=== PATIENT | male | born 1950 | race Caucasian/White ===

== ENCOUNTER 2017-02-13 09:13 | Inpatient (IN) | payer OTHER ==
--- NOTE | 2017-02-13 09:26 | EDPHY ---
H & P Stated Complaint: gerd paritally relieved with nitro, starting at 8am, cardiac hx HPI/ROS: CHIEF COMPLAINT: "Heart burn" HISTORY OF PRESENT ILLNESS: The patient is a 67 y/o male arriving with his complaining of heartburn sensation onset this morning. 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 This morning he felt what he presumed was a "mild case of heartburn" and took two nitro around 8:30, about 1 hour ago. This seemed to improve his symptoms a bit. He started to load up his truck and noticed that he felt diaphoretic and lightheaded. He had these symptoms with his previous TN so he decided to come into the ED. He continues to have a burning sensation in his chest, but reports it has improved to a 2/10 from 4/10. He rarely needs to use his nitro and says he is compliant with his medications. He has not yet taken aspirin today, but did use Protonix this morning. He denies abdominal pain, vomiting, or shortness of breath. REVIEW OF SYSTEMS: A ten point review of systems was performed and is negative with the exception of the items mentioned in the HPI. Source: Patient, Family Exam Limitations: No limitations - Personal History Current Tetanus/Diphtheria Vaccine: Yes Current Tetanus Diphtheria and Acellular Pertussis (TDAP): Yes - Medical/Surgical History PMH: PMH: 1. TN requiring CABG in [address] - [facility] in [place], [place] 2. "multiple clots" following CABG with 1 year of anticoagulants, denies DVT or PE 3. Hyperlipidemia 4. GERD? 5. Sciatic nerve surgery, back surgery, prostatectomy 6. Skin cancer Hx Asthma: Yes Hx Chronic Respiratory Disease: No Hx Diabetes: No Hx Cardiac Disease: Yes Hx Renal Disease: No Hx Cirrhosis: No Hx Alcoholism: No Hx HIV/AIDS: No Hx Splenectomy or Spleen Trauma: No Other PMH: pmh: TN, spine surgery, TURP, shouldersurgery, herinia surgery, dental, skin ca with removal of facial lesions - Social History Smoking Status: Never smoked Additional Social History: Lives in [place]. Visiting son here. at bedside. 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 - Physical Exam Exam: General Appearance: Alert. Vital signs reviewed. HR 55. BP 129/86. Eyes: Pupils equal and round, no conjunctival injection, no discharge. Anicteric. ENT, Mouth: Mucous membranes are moist, no oropharyngeal erythema or edema. Neck: No lymphadenopathy, supple. No JVD. Respiratory: Lungs are clear to auscultation; no wheezes, rales, or rhonchi. Cardiovascular: Bradycardic regular rate and rhythm; no murmur, rub, or gallop. Gastrointestinal: Abdomen is soft and nontender, no masses or organomegaly, bowel sounds normal. Skin: Warm and dry, no rashes on exposed skin, normal color. Back: Nontender to palpation over the thoracolumbar spine. No CVAT. Extremities: No lower extremity edema, no calf tenderness or swelling. Neurological: Alert and oriented. Moving all four extremities easily and equally. Psychiatric: Normal affect. Constitutional: Initial Vital Signs Temperature (C) 36.4 C 02/13/17 09:16 Heart Rate 55 L 02/13/17 09:16 Respiratory Rate 16 02/13/17 09:16 Blood Pressure 129/86 H 02/13/17 09:16 O2 Sat (%) 93 02/13/17 09:16 O2 Delivery Mode Room Air Allergies/Adverse Reactions: No Known Allergies Allergy (Unverified 02/13/17 09:16) Home Medications: Medication Instructions Recorded Ascorbic Acid [Vitamin C 500 mg 1,000 mg PO DAILY 02/13/17 (*)] Aspirin [Aspirin 81mg (*)] 81 mg PO DAILY 02/13/17 Atorvastatin Calcium [Lipitor 40 80 mg PO HS 02/13/17 mg (*)] Carvedilol [Coreg (*)] 6.25 mg PO BIDMEAL 02/13/17 Cholecalciferol Vit D3 [Vitamin D3 2,000 units PO DAILY 02/13/17 2000 units tab (OTC)] Citalopram [CeleXA] 20 mg PO DAILY 02/13/17 Furosemide [Lasix 40 MG (*)] 40 mg PO DAILY 02/13/17 Glucosamine/Chondroitin 1 each PO DAILY 02/13/17 [Glucosamine/Chondroitin (*)] Herbals/Supplements -Info Only 1 ea PO DAILY 02/13/17 Lisinopril [Zestril 10 mg (*)] 10 mg PO DAILY 02/13/17 Multivitamins [Multivitamin (*)] 1 each PO DAILY 02/13/17 Nitroglycerin [Nitrostat 0.4 mg 0.4 mg SL Q5M PRN 02/13/17 (*)] Pantoprazole Sodium [Protonix 40mg 40 mg PO DAILY 02/13/17 (*)] Spironolactone [Aldactone 25 MG 12.5 mg PO DAILY 02/13/17 (*)] Vitamin B Complex [B Complex] 1 each PO DAILY 02/13/17 Medical Decision Making - Diagnostics EKG Interpretation: The 12 lead EKG was interpreted by myself. See hard copy and/or "tracemaster" electronic copy for interpretation. A 2nd 12 lead EKG is interpreted in Trace master View by emergency department physician. No significant change Imaging Results: Imaging Impressions Chest X-Ray 02/13/17 09:28 Impression: Mild bronchitis. No other findings for acute cardiopulmonary abnormality. Imaging: I viewed and interpreted images myself ED Course/Re-evaluation: This is a 67 y/o male with a history of CAD and bypass who presents with exertional chest pain somewhat improved with nitro at home. Exam is unremarkable. IV established. Labs drawn including troponin. 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 Chest x-ray ordered. 324mg PO Aspirin administered. Prior EKG requested from hospital in [place]. 1040: Reassessed patient. Discussed work up thus far. Troponin is negative, though this is not necessarily sensitive due to short time since symptom onset. Chest x-ray pending. Reassessed patient. He had a burning substernal chest pain on arrival and was offered nitroglycerin but declined. No current chest pain. 1218: Spoke with hospitalist service. Dr. Gomez accepts admission for chest pain. Repeat EKG is without changes. This patient has a HEART score of 7, giving him an over 50% chance of having an acute major coronary event within the next 6 weeks. I recommended admission and he has accepted admission. Differential Diagnosis: Chest pain including but not limited to myocardial ischemia, pulmonary embolus, chest wall pain, pleural inflammation and pulmonary infectious causes. - Data Points Laboratory Results: Laboratory Results 02/13/17 09:35 02/13/17 09:35 02/13/17 02/13/17 09:35 09:35 WBC 7.47 10^3/uL 10^3/uL (3.80-9.50) RBC 4.66 10^6/uL 10^6/uL (4.40-6.38) Hgb 14.7 g/dL g/dL (13.7-17.5) Hct 43.1 % % (40.0-51.0) MCV 92.5 fL fL (81.5-99.8) MCH 31.5 pg pg (27.9-34.1) MCHC 34.1 g/dL g/dL (32.4-36.7) RDW 12.5 % % (11.5-15.2) Plt Count 232 10^3/uL 10^3/uL (150-400) MPV 9.9 fL fL (8.7-11.7) Neut % (Auto) 60.3 % % (39.3-74.2) Lymph % (Auto) 26.0 % % (15.0-45.0) Dickey % (Auto) 8.8 % % (4.5-13.0) Eos % (Auto) 3.3 % % (0.6-7.6) Baso % (Auto) 1.1 % % (0.3-1.7) Nucleat RBC Rel Count 0.0 % % (0.0-0.2) Absolute Neuts (auto) 4.50 10^3/uL 10^3/uL (1.70-6.50) Absolute Lymphs (auto) 1.94 10^3/uL 10^3/uL (1.00-3.00) Absolute Monos (auto) 0.66 10^3/uL 10^3/uL (0.30-0.80) Absolute Eos (auto) 0.25 10^3/uL 10^3/uL (0.03-0.40) Absolute Basos (auto) 0.08 10^3/uL 10^3/uL (0.02-0.10) Absolute Nucleated RBC 0.00 10^3/uL 10^3/uL (0-0.01) Immature Gran % 0.5 % % (0.0-1.1) Immature Gran # 0.04 10^3/uL 10^3/uL (0.00-0.10) Sodium 140 mEq/L mEq/L (134-144) Potassium 3.9 mEq/L mEq/L (3.5-5.2) Chloride 106 mEq/L mEq/L (97-110) Carbon Dioxide 23 mEq/l mEq/l (22-31) Anion Gap 11 mEq/L mEq/L (8-16) BUN 15 mg/dL mg/dL (7-23) Creatinine 0.9 mg/dL mg/dL (0.7-1.3) Estimated GFR > 60 Glucose 151 mg/dL H mg/dL (70-100) Calcium 9.4 mg/dL mg/dL (8.5-10.4) Troponin I < 0.012 ng/mL ng/mL (0-0.034) Medications Given: Discontinued Medications Aspirin (Aspirin) 324 mg PO EDNOW ONE Stop: 02/13/17 09:29 Last Admin: 02/13/17 09:33 Dose: 324 mg Departure - Departure Disposition: [facility] Inpatient Acute Clinical Impression: Chest pain Qualifiers: Chest pain type: other chest pain Qualified Code(s): R07.89 - Other chest pain Condition: Good Report Scribed for: Catie Ralph Report Scribed by: Alessandra Freitas Date of Report: 02/13/17 Time of Report: 09:36 Physician Review and Approval Statement: 02/13/17 09:25 Portions of this note were transcribed by the front office medical assistant. I, Dr. Catie Ralph, personally performed the history, physical exam, and medical decision- making; and confirmed the accuracy of the information in the transcribed note.
--- NOTE | 2017-02-13 09:27 | CPEKG ---
Heart Rate: 54 RR Interval: 1111 P-R Interval: 188 QRSD Interval: 100 QT Interval: 448 QTC Interval: 425 P Gallup: -12 QRS Gallup: -53 T Wave Gallup: 65 EKG Severity - ABNORMAL ECG - EKG Impression: SINUS RHYTHM EKG Impression: INFERIOR INFARCT, AGE INDETERMINATE EKG Impression: BORDERLINE R WAVE PROGRESSION, ANTERIOR LEADS Electronically Signed By: Catie Ralph 13-Feb-2017 15:29:44
[2017-02-13] MEDS ORDERED: ASPIRIN 81 MG CHEWABLE TAB PO ONE (09:28)
[2017-02-13] MEDS ORDERED: NITROGLYCERIN 0.4 MG BTL SL PRN ×2 (09:44→17:55)
[2017-02-13 09:46] LABS: % IMMATURE GRANULYOCYTES 0.5 % (0.0-1.1); ABSOLUTE IMMATURE GRANULOCYTES 0.04 10^3/uL (0.00-0.10); ADD DIFF? NO; ADD MORPH? NO; ADD SCAN? NO; ATYPICAL LYMPHOCYTE FLAG 10 (0-99); FRAGMENT RBC FLAG 0 (0-99); HEMATOCRIT 43.1 % (40.0-51.0); HEMOGLOBIN 14.7 g/dL (13.7-17.5); LEFT SHIFT FLG 0 (0-99); LIPEMIA HEMOLYSIS FLAG 90 (0-99); MEAN CELL HEMOGLOBIN 31.5 pg (27.9-34.1); MEAN CELL HEMOGLOBIN CONCENTR. 34.1 g/dL (32.4-36.7); MEAN CELL VOLUME 92.5 fL (81.5-99.8); MEAN PLATELET VOLUME 9.9 fL (8.7-11.7); PLATELET CLUMPS FLAG 10 (0-99); PLATELET COUNT 232 10^3/uL (150-400); RED BLOOD CELL COUNT 4.66 10^6/uL (4.40-6.38); RED CELL DISTRIBUTION WIDTH 12.5 % (11.5-15.2)
[2017-02-13 10:10] LABS: ANION GAP 11 mEq/L (8-16); CALCIUM 9.4 mg/dL (8.5-10.4); CARBON DIOXIDE 23 mEq/l (22-31); CHLORIDE 106 mEq/L (97-110); CREATININE 0.9 mg/dL (0.7-1.3); GLOMERULAR FILTRATION RATE > 60; GLUCOSE 151 mg/dL (70-100); POTASSIUM 3.9 mEq/L (3.5-5.2); SODIUM 140 mEq/L (134-144)
[2017-02-13 10:16] LABS: TROPONIN I < 0.012 ng/mL (0-0.034)
--- NOTE | 2017-02-13 11:17 | CPEKG ---
Heart Rate: 52 RR Interval: 1154 P-R Interval: 188 QRSD Interval: 92 QT Interval: 440 QTC Interval: 410 P Dresden: -36 QRS D[place]den: -50 T Wave D[place]den: 82 EKG Severity - ABNORMAL ECG - EKG Impression: SINUS RHYTHM EKG Impression: INFERIOR INFARCT, AGE INDETERMINATE EKG Impression: BORDERLINE R WAVE PROGRESSION, ANTERIOR LEADS Electronically Signed By: Catie Ralph 13-Feb-2017 15:29:24
[2017-02-13] MEDS ORDERED: ACETAMINOPHEN 325 MG TAB ONE (16:14)
[2017-02-13] MEDS ORDERED: ONDANSETRON DISINTEGRATING 4 MG TAB PO PRN (17:39)
[2017-02-13] MEDS ORDERED: ALBUTEROL 60 PUFFS/8 GM MDI IH PRN (17:39)
[2017-02-13] MEDS ORDERED: ALBUTEROL 3 ML DEYVIAL IH PRN (17:39)
[2017-02-13] MEDS ORDERED: ZOLPIDEM TARTRATE 5 MG TAB PO PRN (17:39)
[2017-02-13] MEDS ORDERED: LORazepam 0.5 MG TAB PO PRN (17:39)
[2017-02-13] MEDS ORDERED: ONDANSETRON 4 MG/2 ML VIAL IVP PRN (17:39)
[2017-02-13] MEDS: NS 1,000 ML IV SCH (18:08)
[2017-02-13] MEDS ORDERED: HEPARIN 10,000 UNIT/10 ML MDV IVP ONE (18:14)
[2017-02-13] MEDS ORDERED: HEPARIN 10,000 UNIT/10 ML MDV IVP PRN (18:14)
[2017-02-13] MEDS ORDERED: HEPARIN/DEXTROSE 500 ML IV SCH (18:15)
--- NOTE | 2017-02-13 18:19 | GHP ---
[f rep st] HISTORY AND PHYSICAL DATE OF ADMISSION: 02/13/2017 CHIEF COMPLAINT: Burning anterior pain of the chest. HISTORY OF PRESENT ILLNESS: This is a 67-year-old male, who arrived with his complaining of a burning anterior chest sensation which began in onset this morning. He has a history of coronary artery disease, with an NSTEMI dating to 03/2013 and status post PCI to the right coronary artery. He ultimately thrombosed that stent in 07/2013. He was given nitroglycerin in 2012 but says he has only used it once before, but this morning he began having this anterior burning pain rated 4/10. It did not radiate to his neck but it did radiate slightly toward his left arm but not down his arm. The pain was very similar to the type of pain he had when he experienced his DC in 2012 so he took 2 nitroglycerin. Approximately 1 hour after that the symptoms had abated some and he took another nitroglycerin, but because of the persistence and return of the pain, he was brought here to the ER by his . He has not taken his aspirin today but he did use his Protonix in the morning. He denies nausea, vomiting or shortness of breath. He did get diaphoretic with the first use of his nitroglycerin but did not experience dizziness. The first use of the nitroglycerin did diminish his pain. He has long-standing GERD for which he uses Protonix and it is usually in good control and does not bother him, thus , this onset of this burning pain is unusual. He denies any food intolerance or indiscretion and there has been no recent exertion or episodes of shortness of breath, orthopnea, PND, palpitations, feelings of slow or rapid heart beating in the recent past or during this episode. He also denies dizziness or near-syncopal episodes. He is usually able to walk 4 or 5 blocks without difficulty. He can climb 1 flight of steps without shortness of breath. PAST MEDICAL HISTORY: 1. NSTEMI in 03/2013 and status post PCI to the right coronary artery. The stent ultimately thrombosed in 07/2013. He was thus then placed on 1 year of warfarin anticoagulation. He denies DVT or pulmonary embolus but reports he was placed on 1 year of anticoagulation because of clotting. Review of his outside records shows that an echo at that time showed an inferior scar and aneurysm by echo in 07/2013. His EF was reported then to be 45% to 50%. 2. Hyperlipidemia. 3. GERD for many years treated with PPI medication. 4. Clinically possible COPD as he has a 40 pack-year history of tobacco, although he does not use bronchodilators though he does experience a slight morning and a.m. cough which is not productive of sputum and usually resolves on its own. This finding is not consistent with chronic bronchitis. 5. He denies a history of asthma, diabetes or renal problems. He is under antihypertensive medication. PAST SURGICAL HISTORY: He has had lumbar surgery and prostate surgery. He has had shoulder surgery, a herniorrhaphy, dental care and a skin cancer removed from his face. SOCIAL HISTORY: The gentleman is . He has a 40 pack-year history of tobacco. Alcohol is rare. Drugs: None. MEDICATIONS: Noted in the EMR and have been reconciled. These medications include antihypertensives, Lasix, beta theresa, aspirin, Protonix and spironolactone. ALLERGIES: None. FAMILY HISTORY: His father and mother both of heart disease. The onset of the age is unclear although it is possible there is early coronary disease. REVIEW OF SYSTEMS: A 10-point review of systems was entirely negative. Specifically, he has noted no palpitations, orthopnea, PND, fever, chills, sweats, back pain, nausea or vomiting. PHYSICAL EXAM: GENERAL: This is a pleasant alert gentleman who appears comfortable. I am seeing the gentleman on the medical floor. He is not experiencing any chest pain at the time of my evaluation. VITAL SIGNS: His initial vital signs show he is a normal heart rate at approximately 55 sinus rhythm on the monitor, respirations 16, nonlabored, he is afebrile and blood pressure is normal. HEENT: Within normal limits. NECK: Supple without meningismus. CHEST WALL: Nontender to palpation. Normal inspiratory excursion. LUNGS: Clear to P and A without wheezing or rales. HEART: Soft heart sounds, although he is a large gentleman and is overweight. He has singular S1, what appears to be a singular S2. No murmur or gallop is appreciated. ABDOMEN: Obese, normoactive bowel sounds. No masses, tenderness or organomegaly. EXTREMITIES: No edema, cyanosis or clubbing. LABORATORY: Initial CBC is entirely normal. Chemistry panel is also normal but an elevated glucose of 151. Initial troponin is normal. ECG here initially showed Q-waves inferiorly, consistent with a remote inferior myocardial infarction. There is no ST or T-wave changes consistent with ischemia. The ECG was repeated 90 minutes later and showed no significant changes and no changes of ischemia. Chest x-ray showed borderline cardiomegaly , mild peribronchial cuffing seen bilaterally, consistent with mild bronchitis. There is no other active cardiopulmonary disease noted. The chest x-ray was reviewed personally on the PAC system. ASSESSMENT: 1. Acute chest pain. Possible acute cardiac ischemia, although it is not evident on his initial troponin or ECGs. Serial troponins will be obtained, and if necessary, the gentleman will be cardiac risk stratified in the a.m. should his troponin series be negative. He is a gentleman who has known coronary artery disease, and by report of old records, thrombosed a right RCA stent. He was anticoagulated for 1 year, probably because of the thrombosis of the stent and because there was an aneurysm noted on his echo in 2012. A repeat cardiac echo will be obtained and cardiac consultation will also be obtained. Currently his rhythm is stable in sinus rhythm. 2. Hypertension by history and he is normotensive at this time. We will continue his antihypertensive regimen and follow this closely. 3. History of tobacco use with cessation of tobacco in 2013. He has a mild morning a.m. and p.m. cough but is not productive of sputum. His oxygen saturation is normal. Body habitus may indicate possible obstructive sleep apnea and nighttime oxygen saturations will be followed and I suggest a sleep study as an outpatient. 4. Gastroesophageal reflux disease by history. We will continue his PPI medication. 5. MOISES: Patient will use his own CPAP mask. 5. DVT prophylaxis will be with Lovenox. 6. Code status is full. BILLING: The gentleman will be admitted to observation. Should he require further evaluation and cardiac risk stratification, he should be placed at inpatient. Note that I have reviewed the gentleman's past medical history, and his records from [facility]. These records are contained on his chart on the PCU. TIME: This admission required 55 minutes. Addendum: Elevated troponin noted at 1700 hours. Patient placed on NTG and heparin, spoke with Dr Guero Fitch, ordered cardiac echo for AM. /[id number]/MODL MTDD
[2017-02-13] MEDS ORDERED: NITROGLYCERIN/DEXTROSE 250 ML IV SCH (18:30)
[2017-02-13] MEDS: ATORVASTATIN CALCIUM 40 MG TAB PO SCH (19:42)
[2017-02-13] MEDS: CARVEDILOL 6.25 MG TAB PO SCH (19:42)
[2017-02-13] MEDS: FUROSEMIDE 40 MG TAB PO SCH (19:43)
[2017-02-13] MEDS: LISINOPRIL 10 MG TAB PO SCH (19:46)
[2017-02-13 19:59] LABS: % IMMATURE GRANULYOCYTES 0.4 % (0.0-1.1); ABSOLUTE IMMATURE GRANULOCYTES 0.05 10^3/uL (0.00-0.10); ADD DIFF? NO; ADD MORPH? NO; ADD SCAN? NO; ATYPICAL LYMPHOCYTE FLAG 10 (0-99); FRAGMENT RBC FLAG 0 (0-99); HEMATOCRIT 42.4 % (40.0-51.0); HEMOGLOBIN 14.6 g/dL (13.7-17.5); LEFT SHIFT FLG 10 (0-99); LIPEMIA HEMOLYSIS FLAG 90 (0-99); MEAN CELL HEMOGLOBIN 31.6 pg (27.9-34.1); MEAN CELL HEMOGLOBIN CONCENTR. 34.4 g/dL (32.4-36.7); MEAN CELL VOLUME 91.8 fL (81.5-99.8); MEAN PLATELET VOLUME 9.8 fL (8.7-11.7); PLATELET CLUMPS FLAG 10 (0-99); PLATELET COUNT 232 10^3/uL (150-400); RED BLOOD CELL COUNT 4.62 10^6/uL (4.40-6.38); RED CELL DISTRIBUTION WIDTH 12.6 % (11.5-15.2)
[2017-02-13 20:08] LABS: APTT 25.7 SEC (23.0-38.0); INR 0.98 (0.83-1.16); PROTIME(PATIENT) 12.9 SEC (12.0-15.0)
[2017-02-13 21:13] LABS: COLOR YELLOW; LEUKOCYTE ESTERASE,URINE NEGATIVE (NEGATIVE); NITRITE,URINE NEGATIVE (NEGATIVE)
--- NOTE | 2017-02-13 21:50 | CPEKG ---
Heart Rate: 63 RR Interval: 952 P-R Interval: 184 QRSD Interval: 96 QT Interval: 416 QTC Interval: 426 P Mobile: 29 QRS Mobile: 210 T Wave Mobile: 27 EKG Severity - ABNORMAL ECG - EKG Impression: SINUS RHYTHM EKG Impression: INFERIOR INFARCT, AGE INDETERMINATE EKG Impression: LATERAL INFARCT, AGE INDETERMINATE EKG Impression: CONSIDER ANTERIOR INFARCT Electronically Signed By: Anabelle Geller 14-Feb-2017 07:11:21
[2017-02-14] MEDS: NITROGLYCERIN 2% 1 GM PACKET TP SCH ×4 (00:52→18:21)
[2017-02-14 04:05] LABS: % IMMATURE GRANULYOCYTES 0.6 % (0.0-1.1); ABSOLUTE IMMATURE GRANULOCYTES 0.06 10^3/uL (0.00-0.10); ADD DIFF? NO; ADD MORPH? NO; ADD SCAN? NO; ATYPICAL LYMPHOCYTE FLAG 10 (0-99); FRAGMENT RBC FLAG 0 (0-99); HEMATOCRIT 39.4 % (40.0-51.0); HEMOGLOBIN 13.4 g/dL (13.7-17.5); LEFT SHIFT FLG 0 (0-99); LIPEMIA HEMOLYSIS FLAG 90 (0-99); MEAN CELL HEMOGLOBIN 31.7 pg (27.9-34.1); MEAN CELL VOLUME 93.1 fL (81.5-99.8); PLATELET CLUMPS FLAG 0 (0-99); PLATELET COUNT 213 10^3/uL (150-400); RED BLOOD CELL COUNT 4.23 10^6/uL (4.40-6.38); RED CELL DISTRIBUTION WIDTH 12.8 % (11.5-15.2)
[2017-02-14 04:19] LABS: INR 1.09 (0.83-1.16)
[2017-02-14 05:00] LABS: ALANINE AMINOTRANSFERASE 53 IU/L (21-72); ALBUMIN 3.5 g/dL (3.5-5.0); ALKALINE PHOSPHATASE 64 IU/L (38-126); ANION GAP 12 mEq/L (8-16); ASPARTATE AMINOTRANSFERASE 82 IU/L (17-59); BILIRUBIN,TOTAL 0.7 mg/dL (0.1-1.4); CALCIUM 8.5 mg/dL (8.5-10.4); CARBON DIOXIDE 23 mEq/l (22-31); CHLORIDE 106 mEq/L (97-110); CREATININE 0.8 mg/dL (0.7-1.3); GLOMERULAR FILTRATION RATE > 60; GLUCOSE 164 mg/dL (70-100); MAGNESIUM 1.9 mg/dL (1.6-2.3); POTASSIUM 3.7 mEq/L (3.5-5.2); SODIUM 141 mEq/L (134-144); TOTAL PROTEIN 6.1 g/dL (6.3-8.2)
[2017-02-14] MEDS: NS 1,000 ML IV SCH (05:20)
[2017-02-14] MEDS ORDERED: NS 1,000 ML IV ONE (06:44)
[2017-02-14] MEDS ORDERED: DIAZEPAM 5 MG TAB PO ONE (06:44)
[2017-02-14] MEDS ORDERED: FAMOTIDINE 20 MG TAB PO ONE (06:44)
[2017-02-14] MEDS ORDERED: ASPIRIN EC 325 MG TAB PO ONE (06:44)
[2017-02-14] MEDS ORDERED: diphenhydrAMINE 25 MG CAP PO ONE (06:44)
[2017-02-14 07:09] LABS: CHOLESTEROL 118 mg/dL (140-220); CHOLESTEROL/HDL RATIO 3.03 RATIO (1.00-4.97); HIGH DENSITY LIPOPROTEIN 39 mg/dL (40-65); LDL/HDL RATIO 0.51 RATIO (1.00-3.64); LOW DENSITY LIPOPROTEIN 20 mg/dL (80-100); NON-HIGH DENSITY LIPOPROTEIN 79 mg/dL (90-129); TRIGLYCERIDE 297 mg/dL (40-150); VERY LOW DENSITY LIPOPROTEINS 59 mg/dL (8-25)
--- NOTE | 2017-02-14 08:32 | GCON ---
[f rep st] CONSULTATION CARDIAC CONSULTATION. DATE OF CONSULTATION: 02/14/2017 CHIEF COMPLAINT: Chest pain, abnormal troponins. HISTORY OF PRESENT ILLNESS: This is a 67-year-old gentleman who has a past cardiac history, in 2012 had a myocardial infarction of the right coronary artery. Apparently had a stent placed which fail ed. He apparently had "multiple thromboses at that time in catheterization." He was placed on Coum elvia for a year. 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 He lives in [place]. He is here visiting. On February 13, he awoke with chest pain which was similar to his prior infarction. He did take an aspirin, Protonix, and nitroglycerin. Prior to this, he had been active without any other issues. He is compliant with his medicine and does use CPAP. His pain resolved, and initial troponins were normal, subsequently have risen. The patient has been comfortable. He was placed on heparin and nitro paste last evening and did well. His EKGs show an old inferior myocardial infarc tion without acute changes. In speaking to him and his , I have outlined his findings of probab le non-Q-wave myocardial infarction. We talked about an invasive strategy versus noninvasive strate gy. They would like to progress to coronary angiography. He has no known bleeding issues such as h emophilia, protein C or S deficiency, or other inborn errors in metabolism. He was on Coumadin in t he past because of this presumably LV thrombus, but has had a prostate surgery within a year without any bleeding problems. He has been comfortable and stable overnight. He has agreed to cardiac cat heterization. He is n.p.o. This will be done today. Consents have been signed. PAST MEDICAL HISTORY: 1. Coronary artery disease as outlined above. 2. History of GERD, on PPI. 3. History of sleep apnea, on CPAP. PAST SURGICAL HISTORY: Includes lumbar surgery and prostate surgery without complications. MEDICATIONS: See reconciliation form. ALLERGIES: No known allergies. FAMILY HISTORY: Noncontributory. REVIEW OF SYSTEMS: No escalating chest pain, palpitations, syncope. No GI, blood loss. No clot ting or other issues. EXAM: GENERAL: He is seen resting in bed, comfortable, has not had chest pain over the course of y afternoon or evening. The patient used CPAP last night and slept well. HEENT: Mouth: Or opharynx is moist. LUNGS: Clear. CARDIOVASCULAR: Regular rate and rhythm. I could not hear murm ur, gallops, rub. ABDOMEN: Soft, nontender. MUSCULOSKELETAL: Showed 2+ femoral pulses and radial pulses. ASSESSMENT: 1. Non-Q-wave myocardial infarction. Patient has been comfortable and pain free on medical managem ent at this point. Discussed the options of invasive versus noninvasive strategy. They would like to progress with the invasive strategy. There was some questionable history of "clotting" at the ti me of his intervention, but he has no ongoing bleeding diathesis that he knows of. He was on Coumad in for LV aneurysm issues. He had no unstable angina prior to his event yesterday. He has been n.p .o. He and his understand the risks and potential complications. 2. Sleep apnea. Patient on CPAP. 3. History of gastroesophageal reflux disease. Patient on PPI. PLAN: Cardiac cath later today. Intervention if needed. /[id number]/MODL
--- NOTE | 2017-02-14 08:47 | HOSPPROG ---
Hospitalist Progress Note Assessment/Plan: 67 yo male admitted with chest pain. since admission his troponin has been rising without chest pain, rhythm stable in NSR with unifocal ectopy, BP normal , and normal oxygenation -NSTEMI with elevated troponin, no changes on ECG. Cardiology has seen, will do cardiac cath today. ECG reviewed by myself shows possible anterior-lateral infarction. prior IMI with q waves noted. -HTN: good control -DM: glucose in good control; HgbA1c pending -MOISES: using CPAP -CAD: lipid panel shows low LDL; will control statin Plan: Cardiac cath and intervention today as necessary. Cardiac echo pending Time: 40 minutes; discussed with cardiology cardiac catheterization shows no significant flow limitations. No interventions were performed. Per Cardiology he will be managed with aggressive medical care. Subjective: No chest pain, sob, N.vomiting. Objective: Vital Signs Temp Pulse Resp BP Pulse Ox 36.5 C 58 L 14 91/54 L 96 02/14/17 07:54 02/14/17 07:54 02/14/17 07:54 02/14/17 07:54 02/14/17 07:54 Laboratory Results 02/14/17 03:25 02/14/17 03:25 02/13/17 02/14/17 02/15/17 05:59 05:59 05:59 Intake Total 1884 Balance 1884 PT 14.0 SEC (12.0-15.0) 02/14/17 03:25 INR 1.09 (0.83-1.16) 02/14/17 03:25 - Time Spent With Patient Time Spent with Patient: greater than 35 minutes Time Spent with Patient: Greater than 35 minutes spent on this patients care, greater than 50% of time spent counseling, educating, and coordinating care regarding the above mentioned plan. - Pending Discharge Pending Discharge Within 24 Hours: No Pending Discharge Within 48 Hours: Yes Pending Discharge Date: 02/16/17 Pending Discharge Time: 11:00 - Physical Exam Constitutional: no apparent distress Eyes: PERRL, anicteric sclera Ears, Nose, Mouth, Throat: moist mucous membranes, hearing normal Cardiovascular: regular rate and rhythym, no murmur, rub, or gallop Respiratory: no respiratory distress, no rales or rhonchi, clear to auscultation Gastrointestinal: normoactive bowel sounds, soft, non-tender abdomen, no palpable masses Genitourinary: no bladder fullness Skin: warm Musculoskeletal: full muscle strength Neurologic: AAOx3, CN II-XII Intact Psychiatric: interacting appropriately ICD10 Worksheet Patient Problems: Problems Problem Status Onset Chest pain Acute
[2017-02-14] MEDS ORDERED: fentaNYL 100 MCG/2 ML INJ ONE (08:59)
[2017-02-14] MEDS ORDERED: MIDAZOLAM 2 MG/2 ML VIAL ONE (08:59)
[2017-02-14] MEDS ORDERED: LIDOCAINE 1% 30 ML SDV ONE (08:59)
[2017-02-14] MEDS ORDERED: ENOXAPARIN 40 MG/0.4 ML SYR SC SCH (09:00)
[2017-02-14] MEDS ORDERED: IOPAMIDOL (ISOVUE-370) 150 ML BTL IV ONE (09:00)
[2017-02-14 09:44] LABS: HEMOGLOBIN A1C 6.7 % (4.0-6.0)
[2017-02-14] MEDS ORDERED: NITROGLYCERIN 0.4 MG BTL SL PRN (10:15)
[2017-02-14] MEDS ORDERED: ATROPINE SULFATE 1 MG/10 ML SYR IVP PRN (10:15)
[2017-02-14] MEDS ORDERED: ONDANSETRON 4 MG/2 ML VIAL IVP PRN (10:15)
[2017-02-14] MEDS ORDERED: HYDROCODONE/APAP 5/325 TAB PO PRN (10:15)
[2017-02-14] MEDS ORDERED: OXYCODONE/APAP 5/325 TAB PO PRN (10:15)
--- NOTE | 2017-02-14 10:50 | PDDXCAT ---
Diagnostic Cath Note - . Date: 02/14/17 [employer]: Choco Indication: Class III or IV angina, which improves to class I/II w medical therapy - Procedure Access: right groin Procedure: left heart catheterization, coronary angiography, left ventriculogram - Materials Left Heart Cath size: 6F Left Heart Cath materials: standard multipack (JL4, JR4, pigtail) - Findings-Left Heart Catheterization LM: Medium lenth vessel with minor (<10%) luminal irregularities to the distal section of the vessel (prior to bifurcation into the LAD and LCX). LAD: Medium sized vessel with diffuse disease (upwards of 40% to the proximal portion of the vessel). There were serial lesions to the mid LAD noted as well. There were not impressive collaterals noted (to supply the distal RCA, known to be occluded). One principal Diagonal was noted, also with mild, diffuse disease noted. LCX: Medium to large diameter vessel with diffuse disease (30-40%). First OM was principal branch vessel. Branching was noted to this vessel. Diffuse disease was also noted to this OM (40%). Small collaterals were noted from the distal LCX/OM system that fed into the distal RCA (known to be occluded). RCA: Complete occlusion to at the proximal portion of the proximal stent. Little to no collateralization from the proximal/ostial vessel to the mid/ distal vessel. EDP: 20 mm Hg LVEF: 40-45% Wall motion: Inferior wall akinesis was noted. Complications: none Estimated blood loss: <50ml Closure method: Angioseal Assessment: 67 y/o male with history of CAD s/p PCI to the RCA four years ago. Four months post pacer implant, the patient was taken back to the labor relations consultant, and occlusion of the RCA stent was noted. Similar symptoms were noted yesterday, and biomarker elevation was noted. No critical lesions were identified with diagnostic angiogram today. Interventional reviewed films. Plan: Would trend the troponins and follow signs and symptoms. Aggressive medical management is recommended. Dietary changes should be implemented. Regular and routine exercise. Would follow patient in house today given the ongoing upward direction of the troponins that have been noted. Statins should continue. Intervention: none Patient Problems: Problems Problem Status Onset Chest pain Acute
[2017-02-14] MEDS: ASPIRIN 81 MG CHEWABLE TAB PO SCH (13:56)
[2017-02-14] MEDS: GLUCOSAMINE/CHONDROITIN CAP PO SCH (14:29)
[2017-02-14] MEDS: CITALOPRAM 20 MG TAB PO SCH (14:29)
[2017-02-14] MEDS: CARVEDILOL 6.25 MG TAB PO SCH ×2 (14:29→20:34)
[2017-02-14] MEDS: SPIRONOLACTONE 25 MG TAB PO SCH (14:29)
[2017-02-14] MEDS: VITAMIN B COMPLEX 1 EA CAP/TAB PO SCH (14:29)
[2017-02-14] MEDS: MULTIVITAMINS 1 EACH TAB PO SCH (14:30)
[2017-02-14] MEDS: LISINOPRIL 10 MG TAB PO SCH (14:30)
[2017-02-14] MEDS: CHOLECALCIFEROL VIT D3 2,000 UNITS TAB/CAP PO SCH (14:30)
[2017-02-14] MEDS: PANTOPRAZOLE SODIUM 40 MG TAB PO SCH (15:17)
--- NOTE | 2017-02-14 17:07 | ECHO ---
[id number] + + [address] : : [place] [address] : : [phone] + + Adult Echocardiographic Report + ----+ :Name: PASTORA BOO VStudy Date: 02/14/2017 08:50 AM : : Hospital Admission Number: [id number] : :: 1950 Gender: Male Height: 74 i n : :Age: 67 yrs Race: WH Weight: 251 lb : :Reason For Study: Eval LV Fx : : BSA: 2.4 met ers2: :History: Chest pain : + ----+ MMode/2D Measurements \T\ Calculations IVSd: 1.3 cm LVIDd: 4.8 cm FS: 14.8 % Ao root diam: 3.5 cm LVPWd: 1.4 cm LVIDs: 4.1 cm EDV(Teich): 108.9 ml ACS: 2.3 cm ESV(Teich): 74.8 ml EF(Teich): 31.3 % Normal Measurement Values: + + :LVIDd (3.5-5.7cm) IVSd (0.6-1.1cm) LVPWd (0.6-1.1cm) Aortic Root (2.0-3.7cm)Left Atrium (1.5-4.0cm): :LV Vol(d) (76-115ml) LV Vol(s) (29-48ml) Ejec Fraction (50-65%)PV Karan (0.6- 1.2m/s) TV Karan (0.4-1.0m/s) : :MV E Karan (0.8-1.0m/s)MV A Karan (0.3-1.0m/s)LVOT Karan (0.7-1.2m/s) Asc Ao Karan ( 0.9-1.8m/s) : + + Doppler Measurements \T\ Calculations MV E max karan: Ao V2 max: LV V1 max: PA V2 max: 56.3 cm/sec 114.0 cm/sec 95.3 cm/sec 82.8 cm/sec MV A max karan: Ao max P.2 mmHgLV V1 max PG: PA max P.6 cm/sec 3.6 mmHg 2.7 mmHg MV E/A: 0.83 TR max karan: 243.0 cm/sec TR max P.6 mmHg RAP systole: 5.0 mmHg RVSP(TR): 28.6 mmHg Left Ventricle The left ventricle is normal in size. There is mild concentric left ventricular hypertrophy. Ejection Fraction = 30-35%. There is Doppler evidence for diastolic dysfunction. The left ventricular ejection fraction is calculated at 31.3 %. There is basilar to mid anteroseptal and basilar to mid inferolateral hypokinesis. Right Ventricle The right ventricle is normal in size and function. Atria The left atrial size is normal. Right atrial size is normal. Mitral Valve The mitral valve is normal in structure and function. There is no evidence of mitral valve prolapse. There is no mitral valve stenosis. There is no mitral regurgitation noted. Tricuspid Valve Normal tricuspid valve. Aortic Valve The aortic valve is normal in structure and function. The aortic valve is trileaflet. There is no aortic stenosis. There is no aortic insufficiency. Pulmonic Valve The pulmonic valve is not well visualized. There is no pulmonic valvular regurgitation. Great Vessels The aortic root is normal size. Pericardium/Pleural There is no pericardial effusion. Conclusion A complete two-dimensional transthoracic echocardiogram was performed (2D, M-mode, Doppler and color flow Doppler). (1) Left ventricular systolic ejection fraction was moderately reducted (30- 35%) - basilar to mid anteroseptal and basilar to mid inferolateral hypokinesis (2) Mild concentric left ventricular hypertrophy (3) Diastolic dysfunction was present (4) Normal right ventricular size with mild reduction in systolic function (5) Normal atrial dimensions (6) Grossly normal mitral valve (7) Trileaflet aortic valve without appreciable insufficiency or sclerosis (8) Grossly normal tricuspid valve (9) Poor visualization of the pulmonic valve (10) No comparison echocardiograms Final Reading Physician: Whitney Russell signed on 02/14/2017 05:06 PM Ordering Physician: Mina Gomez Performed By: Carrington Carey, CS
[2017-02-14] MEDS: ATORVASTATIN CALCIUM 40 MG TAB PO SCH (20:33)
[2017-02-14] MEDS: FUROSEMIDE 40 MG TAB PO SCH (20:34)
[2017-02-14] MEDS: ACETAMINOPHEN 325 MG TAB PO PRN (22:50)
[2017-02-15] MEDS: NITROGLYCERIN 2% 1 GM PACKET TP SCH ×4 (01:06→18:15)
[2017-02-15] MEDS: CARVEDILOL 6.25 MG TAB PO SCH ×2 (08:16→18:14)
--- NOTE | 2017-02-15 09:16 | CPEKG ---
Heart Rate: 61 RR Interval: 984 P-R Interval: 154 QRSD Interval: 94 QT Interval: 416 QTC Interval: 419 P Lorenzo: 11 QRS Lorenzo: -53 T Wave Lorenzo: 77 EKG Severity - ABNORMAL ECG - EKG Impression: SINUS RHYTHM EKG Impression: INFERIOR INFARCT, AGE INDETERMINATE EKG Impression: CONSIDER ANTERIOR INFARCT Electronically Signed By: Anabelle Geller 15-Feb-2017 10:07:17
[2017-02-15] MEDS: SPIRONOLACTONE 25 MG TAB PO SCH (09:28)
[2017-02-15] MEDS: CHOLECALCIFEROL VIT D3 2,000 UNITS TAB/CAP PO SCH (09:29)
[2017-02-15] MEDS: LISINOPRIL 10 MG TAB PO SCH (09:29)
[2017-02-15] MEDS: PANTOPRAZOLE SODIUM 40 MG TAB PO SCH (09:29)
[2017-02-15] MEDS: ASPIRIN 81 MG CHEWABLE TAB PO SCH (09:29)
[2017-02-15] MEDS: CITALOPRAM 20 MG TAB PO SCH (09:29)
[2017-02-15] MEDS: MULTIVITAMINS 1 EACH TAB PO SCH (09:29)
[2017-02-15] MEDS: GLUCOSAMINE/CHONDROITIN CAP PO SCH (09:29)
[2017-02-15] MEDS: VITAMIN B COMPLEX 1 EA CAP/TAB PO SCH (09:29)
--- NOTE | 2017-02-15 10:55 | PDCARPN ---
Cardiology Progress Note Chief Complaint: No complaints voiced today. Assessment/Plan: Assessment: Patient is a 67 y/o male with history of CAD s/p PCI to the RCA in setting of AMI (2013). HTN, HLP, GERD and MOISES with CPAP use also history for the patient. Four months post PCI to the RCA, symptoms of concern were noted, and the patient was brought back to the skilled laborer (at outside hospital). At that time, occlusion of the RCA stent was noted, and they opted for aggressive medical therapy (rather than restenting of the lesion). Since that time, the patient had done well, but 36 hours ago (about 24 hours prior to admission), the patient had similar "GERD like" symptoms that led to the patient's initial intervention in 2013. ECG with inferior injury pattern (uncertain if this represents old pathology or new...there was minimal ST elevation noted, but no reciprocal changes noted). Cardiac biomarkers were noted to be elevated, and the decision to take the patient to the cardiac skilled laborer. Angiogram did not reveal any new pathology (continued occlusion of the RCA) without appreciable collaterals from the left system to the right system. No left ventriculogram was performed given the AVR history. Overnight, troponins began to trend down, but have not normalized. The patient denied any cardiovascular complaints today - no chest pains or pressure. No PND or orthopnea. Long discussion with the patient's yesterday about lifestyle changes - all of which she states they have both had education on in the past, but did not result in any significant changes. Plan: (1) Troponin elevation continues to be noted, although there is a trend down - would reassess troponins early this afternoon to determine levels (2) Would continue therapy on Coreg, lisinopril, and aldactone for history of HTN with iCMP (3) Statins should continue given HLP history (4) Would maintain therapy on ASA, for life, given the CAD/PCI history (5) Dietary consultation to be considered (6) Cardiac rehab should be started once again (7) Would also have patient follow up with cardiology in 1-2 weeks Subjective: No cardiovascular complaints Reviewed/Discussed With: family, multidisciplinary team Objective: Vital Signs (8 Hrs) Temp Pulse Resp BP Pulse Ox 02/15/17 08:15 36.8 C 54 L 15 115/80 94 02/15/17 05:27 36.7 C 60 12 122/75 H 92 Intake/Output (24 Hrs) 02/14/17 02/15/17 02/16/17 05:59 05:59 05:59 Intake Total 550 Balance 550 Intake: Oral (ml) 550 Other: Intake Quantity Yes Sufficient Number of Voids Toilet 2 Result Diagrams: 02/15/17 04:55 02/14/17 03:25 Cardiac Labs: Cardiac Lab Results (72 Hrs) 02/15/17 02/14/17 04:55 22:10 Troponin I 6.930 H 7.670 H EKG: normal sinus rhythm Telemetry: normal sinus rhythm - Physical Exam Constitutional: WDWN, healthy appearing, no apparent distress Eyes: PERRL, EOMI Ears, Nose, Mouth, Throat: moist mucous membranes Cardiovascular: regular rate and rhythm, no murmurs, no rubs, no gallops Peripheral Pulses: 2+: dorsalis-pedis (R), dorsalis-pedis (L) Respiratory: clear to auscultate bilat, no crackles, no wheezes Gastrointestinal: normoactive bowel sounds Skin: no rashes, no edema Musculoskeletal: no muscular tenderness Neurologic: AAOx3, CN II-XII grossly intact Psychiatric: cooperative, interactive, following commands ICD10 Worksheet Patient Problems: Problems Problem Status Onset Chest pain Acute Chronic Disease Mgmt/Transitional Care Acute
[2017-02-15] MEDS: ACETAMINOPHEN 325 MG TAB PO PRN (14:16)
[2017-02-15 16:48] VITALS: BP 122/72; PULSE 56; RESP 18; TEMP 98.2; O2SAT 94
--- NOTE | 2017-02-16 18:30 | GDS ---
[f rep st] DISCHARGE SUMMARY DIAGNOSES: New and acute diagnoses: 1. Non ST elevation myocardial infarction. Patient had elevated troponin, but on cardiac catheteri zation no lesions amenable to intervention were noted. 2. Hyperlipidemia. 3. Gastroesophageal reflux disease. 4. Clinical chronic obstructive pulmonary disease with a [id number] history of tobacco. 5. Obstructive sleep apnea syndrome. CHRONIC DIAGNOSES: 1. Coronary artery disease. 2. Obstructive sleep apnea. CONSULTATIONS: Cardiology. PROCEDURES: Left heart catheterization, coronary angiography and left ventriculogram were performed , showing diffuse disease without significant flow-limiting lesions. The stent placed in the RCA wa s again noted to be occluded. Echocardiogram showed an EF of 30% to 35% with basilar and mid anterior septal and basilar to mid in ferior lateral hypokinesis, diastolic dysfunction was present. HOSPITAL COURSE: A 67-year-old gentleman, with a known prior history of coronary disease, presented with a complaint of chest pressure. His ECG did not show any acute changes, but troponin trending showed an elevated troponin beginning at normal, then rising to 1.1, peaking at 8.2, and then slowly declining over the next 12 to 18 hours to 6.08. Following cardiac catheterization he had no furthe r chest pressure. Prior to cardiac catheterization he was treated with heparin and a nitroglycerin. Nitroglycerin was transitioned to paste and then to oral. He had no chest pressure following card iac catheterization, but with the declining troponin it was felt that he was clinically stable. This gentleman desired to be discharged and will return to his PCP at the [facility]. DISCHARGE MEDICATIONS: Are as follows: 1. New medications of Nitro-Bid 6.5 mg p.o. b.i.d., #30. 2. His continued medications are multivitamins, vitamin D3, vitamin B complex, herbal supplementati on, glucosamine chondroitin sulfate, aspirin 81 mg daily, ascorbic acid 1000 mg daily, spironolacton e 25 mg tablets 12.5 mg daily, Protonix 40 mg daily, lisinopril 10 mg daily, Lasix 40 mg p.o. at bed time, Celexa 20 mg daily, Lipitor 80 mg daily, nitroglycerin 0.4 mg sublingual q.5 minutes p.r.n. ch est pain, carvedilol 6.25 mg p.o. b.i.d. PLAN: Gentleman will return to [place]. He will see his own physician, Christiano Cantu, in the next 2 t o 5 days. I called the patient the day after discharge and noted that he arrived in [place] safely, and withou t any chest pain or chest pressure. He felt well and reported he would be seeing his PCP. Per above, time of this discharge required 50 minutes, greater than 50% to pet counselor and coordinate mary mc's care. /[id number]/MODL
== END 2017-02-15 18:18 | disposition home or self-care (01) | DRG 282 ==
LOC: F2W 12:58 → OBSVTOIN 02-14 17:00
PROVIDERS: ADMIT Internal Medicine Pulmonary Disease; ATTEND Internal Medicine Pulmonary Disease
DX: I21.4 Non-ST elevation (NSTEMI) myocardial infarction (principal); E78.5 Hyperlipidemia, unspecified; K21.9 Gastro-esophageal reflux disease without esophagitis; J44.9 Chronic obstructive pulmonary disease, unspecified; Z87.891 Personal history of nicotine dependence; G47.33 Obstructive sleep apnea (adult) (pediatric); I25.2 Old myocardial infarction; I10 Essential (primary) hypertension
CPT/HCPCS: 85520-90; G0378; J0461; J1644; J2250; J3010; Q9967